=== PATIENT | male | born 1990 | race Caucasian/White ===

== ENCOUNTER 2017-06-01 15:31 | Outpatient (CLI) | payer BC ==
[~2017-06-01 15:31] MED LIST: Gadobenate Dimeglumine 529 MG/1 ML (20ML VIAL) ONE
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
== END 2017-06-01 15:32 | disposition home or self-care (01) ==
LOC: SCSMRI 15:31
PROVIDERS: ATTEND Physician Assistant Surgical
DX: R51 Headache (principal); Z98.890 Other specified postprocedural states
CPT/HCPCS: 70553; A9579

== ENCOUNTER 2017-06-10 14:24 | Outpatient (CLI) | payer BC ==
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
== END 2017-06-10 14:25 | disposition home or self-care (01) ==
LOC: TBSIIMAG 14:24
PROVIDERS: ATTEND Surgery
DX: R51 Headache (principal); G93.89 Other specified disorders of brain; Z98.890 Other specified postprocedural states
CPT/HCPCS: 70450